=== PATIENT | female | born 1945 | race Caucasian/White ===

== ENCOUNTER → 2017-01-10 12:08 | Day surgery (SDC) | payer MEDICARE ==
[~2017-01-10 12:08] MED LIST: ALDACTONE50 MG PO; ALTACE10 MG PO; DILACOR PO; FERROUS SULFAT325 MG PO; INDERAL10 MG PO; LASIX40 MG PO; PROTONIX40 MG PO; ZOFRAN4 MG PO
[2017-01-10 12:37] LABS: HEMATOCRIT 33.2 % (36.0-48.0); HEMOGLOBIN 10.6 g/dL (12-16); MCHC 31.9 g/dL (31.0-37.0); MCV 87.6 fL (80.0-100.0); MEAN PLATELET VOLUME 11.4 fL (7.4-10.4); PLATELET COUNT 132 10x3/uL (130-400); RBC 3.79 10x6/uL (4.00-5.40); RDW 14.8 % (11.5-14.5)
[2017-01-10 13:08] LABS: BASOPHILS 1 % (0.0-2.0); EOSINOPHILS 1 % (0-7); LYMPHOCYTES 14 % (15-50); MONOCYTES 5 % (2-11); NEUTROPHILS 77 % (40-80); PLATELET ESTIMATE NORMAL
== END | disposition home or self-care (01) ==
LOC: D.LAB 12:08
PROVIDERS: Family Medicine
DX: K92.2 Gastrointestinal hemorrhage, unspecified (principal)

== ENCOUNTER 2017-01-20 10:32 | Emergency (ER) | payer MEDICARE ==
[2016-08-10 13:04] VITALS: BMI 29.0
[2017-01-20 11:33] LABS: BASOPHILS 0.6 % (0.0-2.0); EOSINOPHILS 4.8 % (0-7); HEMATOCRIT 34.1 % (36.0-48.0); IMMATURE GRANULOCYTES 0.3 % (0-5); LYMPHOCYTES 11.8 % (15-50); MCH 28.2 pg (26.0-34.0); MCHC 32.3 g/dL (31.0-37.0); MCV 87.4 fL (80.0-100.0); MEAN PLATELET VOLUME 10.9 fL (7.4-10.4); MONOCYTES 9.9 % (2-11); NEUTROPHILS 72.6 % (40-80); PLATELET COUNT 107 10x3/uL (130-400); RDW 14.8 % (11.5-14.5); WBC 3.1 10x3/uL (4.8-10.8)
[2017-01-20 11:46] LABS: ALBUMIN 2.8 g/dL (3.4-5.0); ANION GAP 11.9 mmol/L (8-16); BILIRUBIN - TOTAL 1.26 mg/dL (0.2-1.3); CARBON DIOXIDE 27.5 mmol/L (21.0-32.0); CREATININE - SERUM 0.9 mg/dL (0.6-1.3); POTASSIUM - SERUM 4.4 mmol/L (3.5-5.1); PROTEIN - SERUM 7.1 g/dL (6.4-8.2)
== END 2017-01-20 16:30 | disposition home or self-care (01) ==
LOC: D.ER 10:32
PROVIDERS: Nurse Practitioner Acute Care
DX: K52.9 Noninfective gastroenteritis and colitis, unspecified (principal); C22.8 Malignant neoplasm of liver, primary, unspecified as to type

== ENCOUNTER 2017-07-07 06:15 | Outpatient (CLI) | payer MEDICARE ==
[2017-07-07] MEDS ORDERED: ULTRAM50 MG PO (06:59)
[2017-07-07] MEDS ORDERED: ATIVAN0.5 MG PO (07:02)
[2017-07-07 07:07] VITALS: BP 120/94; BMI 27.5
[2017-07-07 07:31] LABS: BASOPHILS 0.4 % (0-2); EOSINOPHILS 2.1 % (0-7); HEMATOCRIT 38.8 % (36.0-48.0); HEMOGLOBIN 13.2 g/dL (12-16); IMMATURE GRANULOCYTES 0.3 % (0-5); MCH 28.8 pg (26.0-34.0); MCV 84.7 fL (80.0-100.0); MEAN PLATELET VOLUME 9.8 fL (7.4-10.4); MONOCYTES 8.8 % (2-11); NEUTROPHILS 83.4 % (40-80); RBC 4.58 10x6/uL (4.00-5.40); RDW 17.3 % (11.5-14.5); WBC 12.1 10x3/uL (4.8-10.8)
[2017-07-07 07:32] LABS: PLATELET COUNT 139 10x3/uL (130-400)
[2017-07-07 07:44] LABS: APTT 29.6 SECONDS (22.8-39.4); INR 1.29 (0.85-1.17)
[2017-07-07 07:49] LABS: CALCIUM 9.4 mg/dL (8.5-10.1); CARBON DIOXIDE 26.5 mmol/L (21.0-32.0); CREATININE - SERUM 2.7 mg/dL (0.6-1.3); POTASSIUM - SERUM 4.5 mmol/L (3.5-5.1)
--- NOTE | 2017-07-07 15:51 | NUR ---
1300 IV DC WITH CATHER TIP INTACT
== END 2017-07-07 13:45 | disposition home or self-care (01) ==
LOC: D.OPS 06:15 → D.CT 09:00 → D.OPS 13:45
PROVIDERS: Radiology Diagnostic Radiology
DX: R18.8 Other ascites (principal); C22.0 Liver cell carcinoma; Z01.812 Encounter for preprocedural laboratory examination